=== PATIENT | male | born 1960 | race Caucasian/White ===

== ENCOUNTER 2021-09-14 16:13 | Outpatient (REF) | payer OTHER, SELFPAY ==
--- NOTE | ~2021-09-14 | CT_ITS ---
EXAMINATION: CT CHEST WITHOUT CONTRAST CLINICAL INFORMATION: Pulmonary nodules. Follow-up. COMPARISON: CT chest noncontrast 08/29/2017 TECHNIQUE: Multidetector volumetric CT imaging of the chest is performed without contrast. Axial MIP volume rendering provided. Sagittal and coronal reformatted images were obtained. This CT examination was performed using dose optimization techniques as appropriate, variously including the following: *Automated exposure control *Adjustment of mA and/or kV according to patient size (this includes techniques or standardized protocols for targeted exams where dose is matched to indication/reason for exam; i.e. extremities or head) *Use of iterative reconstruction technique DLP: 133 mGy-cm FINDINGS: LUNGS: The central airways are clear and there is no endobronchial lesion or bronchiectasis. There is hyperinflation/emphysematous changes with bilateral apical bulla again seen. There is some mild linear stable scarring adjacent to the lateral aspect left apical bulla as well as stable bilateral fine linear scarring. There is no lobar segmental airspace consolidation or groundglass opacity. Right lung has stable nodularity. Largest nodule is calcified granuloma lateral right upper lobe near minor fissure, 4 mm. Other scattered nodularity is under 4 mm. There are some small nodules along the minor fissure and accessory fissure right lower lobe as before. Left lung has new nodule just under 4 mm left anterior lateral lower lobe (series 7/493, sagittal series 6/13). 2 other smaller nodules subpleural anterior upper lobe and subpleural fissural are stable. MEDIASTINUM: Heart size normal. No pericardial effusion. Residual thymic tissue stable. No hilar or mediastinal adenopathy. Thoracic aorta normal in caliber. PLEURA: There is no pleural effusion. No pleural mass or thickening. AXILLA: No lymphadenopathy. UPPER ABDOMEN: Unremarkable. OSSEOUS STRUCTURES: Unremarkable. CT/CT chest wo con IMPRESSION: 1. New nodule just under 4 mm left anterolateral lower lobe when compared with prior exam 08/29/2017. Other nodularity stable. Fleischner guidelines below. 2. Emphysematous changes with bilateral apical bulla and minor left apical and bilateral posterior basilar scarring, stable. Reference: The Fleischner Society recommendations for management of incidentally detected pulmonary nodules in adults age 35 and greater are based on average nodule size and patient risk category. The recommendations do not apply to lung cancer screening, patients with immunosuppression, or patients with known primary cancer. Single solid nodule average size < 6 mm: Low Risk Patient: No routine follow-up. High Risk Patient: Optional CT at 12 months. Certain patients at high risk with suspicious nodule morphology, upper lobe location, or both may warrant 12-month follow-up.
== END 2021-09-14 16:14 | disposition home or self-care (01) ==
LOC: HO.CT 16:13
PROVIDERS: PCP Family Medicine; Visit Provider Family Medicine
DX: R91.8 Other nonspecific abnormal finding of lung field (principal)
CPT/HCPCS: 71250